=== PATIENT | female | born 1970 | race African-American/Black ===

== ENCOUNTER → 2016-09-15 | Outpatient (CLI) | payer BC | LOC: COL.RAD 10:42 | DX: E07.9 Disorder of thyroid, unspecified (principal); Z85.850 Personal history of malignant neoplasm of thyroid ==

== ENCOUNTER → 2017-09-26 | Outpatient (CLI) | payer BC | LOC: COL.RAD 14:50 | DX: Z08 Encounter for follow-up examination after completed treatment for malignant neoplasm (principal); E04.1 Nontoxic single thyroid nodule; E89.0 Postprocedural hypothyroidism; Z85.850 Personal history of malignant neoplasm of thyroid ==